=== PATIENT | male | born 1970 | race Caucasian/White ===

== ENCOUNTER → 2017-12-15 09:14 | Outpatient (CLI) | payer BC, SELFPAY ==
[2017-12-15 12:18] LABS: Absolute Lymphocyte Count 2.67 X10^3/ul (0.83-4.51); Absolute Neutrophil Count 4.5 X10^3/uL (2.0-7.7); Basophil# 0.04 X10^3/uL; Basophil% 0.5 % (0-1); Eosinophil# 0.21 X10^3/uL; Eosinophils% 2.6 % (0-5); Hematocrit 49.6 % (40-54); Hemoglobin 16.8 g/dl (13.0-16.5); Lymphocyte # 2.67 X10^3/ul (4.0); Lymphocyte % 32.9 % (19-41); Mean Corp Hgb Conc 33.9 g/gl (32-36); Mean Corpuscular Hgb 31.1 pg (27.0-32.0); Mean Corpuscular Volume 91.9 fL (80-94); Mean Platelet Vol. 10.6 fl (6.2-12.0); Monocyte# 0.71 X10^3/uL; Monocyte% 8.7 % (0-10); Neutrophil # 4.47 X10^3/uL (2.7-7.7); Neutrophil % 55.1 % (47-70); Platelet Count 211 K/mm3 (150-450); RBC Distribution Width CV 13.2 % (11.6-14.6); White Blood Count 8.1 K/mm3 (4.4-11.0)
[2017-12-15 12:27] LABS: POSITIVE COUNT NO; POSITIVE DIFFERENTIAL NO; POSITIVE MORPHOLOGY NO
[2017-12-15 12:55] LABS: ALB/GLOB Ratio 1.1 RATIO (0.9-2.4); AST(SGOT) 24 U/L (15-37); Alanine Aminotransfer ALT/SGPT 31 U/L (16-61); Albumin, Serum 3.8 g/dL (3.2-5.0); Alkaline Phosphatase 116 U/L (45-117); Anion Gap 12 (5-15); BUN 11 mg/dL (7-18); BUN/Creat Ratio 11.7 RATIO (10-20); Calcium,Total 8.9 mg/dL (8.5-10.1); Chloride 101 mmol/L (98-107); Cholesterol 201 mg/dL (200); Creatinine, Serum 0.94 mg/dL (0.70-1.30); EST Glomerular Filtration Rate 90 mL/min (>60); Est Glom Filt Rate - Afr Amer 109 mL/min (>60); Globulin 3.6 g/dL (2.2-4.2); Glucose 99 mg/dL (74-106); High Density Lipoprotein 32 mg/dL; Potassium 3.7 mmol/L (3.5-5.1); Protein, Total 7.4 g/dL (6.4-8.2); Sodium Level 136 mmol/L (136-145); Thyroid Stim Hormone (TSH) 1.73 uIU/mL (0.358-3.74); Triglycerides 252 mg/dL; Very Low Density Lipoprotein 50 mg/dL (5-40)
[2017-12-16 10:31] LABS: Vitamin B12 447 pg/mL (211-911); Vitamin D,25 Hydroxy 11.6 ng/mL (29.95-100.01)
[2017-12-18 14:06] LABS: Testosterone, Free 9.26 ng/dL (5.00-21.00)
[2017-12-19 10:01] LABS: Testosterone, % Free 3.81 % (1.50-4.20); Testosterone, Total 243 ng/dL (264-916)
== END ==
PROVIDERS: Visit Provider Family Medicine
DX: I10 Essential (primary) hypertension (principal); R53.83 Other fatigue; E78.5 Hyperlipidemia, unspecified; N52.9 Male erectile dysfunction, unspecified
CPT/HCPCS: 36415; 80053; 80061; 82306; 82607; 84402; 84403; 84443; 85025

== ENCOUNTER → 2018-01-02 13:49 | Outpatient (CLI) | payer BC, SELFPAY ==
--- NOTE | 2018-01-02 13:49 | DT_ITS ---
This patient was seen during an EMR downtime December 26, 2017 - January 02, 2018. This patient may have a combination of paper and electronic documentation or all paper documentation. All documentation is viewable within the e-chart portion of [facility] for each patient visit.
--- NOTE | 2018-01-07 09:20 | LEAS ---
Arterial Study - Arterial Study Arterial Study: This is a 47-year-old male with a history of hypertension and smoking. He presents with symptoms of exertional leg pain, suspicious for intermittent claudication related to arterial occlusive disease. The patient's symptoms are worse in the right lower extremity. Suspecting the presence of arterial occlusive disease, the patient was brought to the noninvasive vascular laboratory at this time for the purpose of bilateral noninvasive lower extremity arterial assessment. Doppler signal assessment was used to evaluate the pulses at ankle level bilaterally. On the right, the posterior tibial and dorsalis pedis pulses were biphasic. The left posterior tibial pulse was triphasic. The left dorsalis pedis pulse was biphasic. Segmental limb pressures were obtained bilaterally. The right low thigh pressure was measured at 128 mmHg. The right calf pressure was measured at 102 mmHg. The right ankle pressure, as determined by posterior tibial pulse, was measured at 106 mmHg. The right ankle pressure, as determined by dorsalis pedis pulse, was measured at 99 mmHg. The right digital pressure was measured at 82 mmHg. The left low thigh pressure was measured at 160 mmHg. The left calf pressure was measured at 129 mmHg. The left ankle pressure, as determined by posterior tibial pulse, was measured at 135 mmHg. The left ankle pressure, as determined by dorsalis pedis pulse, was measured at 124 mmHg. The left digital pressure was measured at 98 mmHg. Pulse-volume recordings were obtained bilaterally and segmentally. Waveform amplitudes appeared to be diminished at digital levels bilaterally. Resting ankle-brachial indices were calculated bilaterally. The resting right ankle-brachial index was calculated to be 0.75. The resting left ankle-brachial index was calculated to be 0.96. Digital-brachial indices were calculated bilaterally. The right digital-brachial index was calculated to be 0.58. The left digital-brachial index was calculated to be 0.70. Impression: Based upon the findings of this resting noninvasive lower extremity arterial study, there is evidence of moderate arterial occlusive disease in the right lower extremity. Arterial flow in the left lower extremity appears to be relatively normal. Biphasic waveforms are noted at ankle level on the right. Triphasic and biphasic waveforms were noted at ankle level on the left. The resting right ankle-brachial index is moderately diminished. The right digital-brachial index is mildly to moderately diminished, consistent with mild to moderate arterial occlusive disease in the right lower extremity. The resting left ankle-brachial index is normal. The left digital-brachial index is low-normal.
--- NOTE | 2018-01-07 09:31 | LEAS_ITS ---
Arterial Study - Arterial Study Arterial Study: This is a 47-year-old male with a history of hypertension and smoking. He presents with symptoms of exertional leg pain, suspicious for intermittent claudication related to arterial occlusive disease. The patient's symptoms are worse in the right lower extremity. Suspecting the presence of arterial occlusive disease, the patient was brought to the noninvasive vascular laboratory at this time for the purpose of bilateral noninvasive lower extremity arterial assessment. Doppler signal assessment was used to evaluate the pulses at ankle level bilaterally. On the right, the posterior tibial and dorsalis pedis pulses were biphasic. The left posterior tibial pulse was triphasic. The left dorsalis pedis pulse was biphasic. Segmental limb pressures were obtained bilaterally. The right low thigh pressure was measured at 128 mmHg. The right calf pressure was measured at 102 mmHg. The right ankle pressure, as determined by posterior tibial pulse, was measured at 106 mmHg. The right ankle pressure, as determined by dorsalis pedis pulse, was measured at 99 mmHg. The right digital pressure was measured at 82 mmHg. The left low thigh pressure was measured at 160 mmHg. The left calf pressure was measured at 129 mmHg. The left ankle pressure, as determined by posterior tibial pulse, was measured at 135 mmHg. The left ankle pressure, as determined by dorsalis pedis pulse, was measured at 124 mmHg. The left digital pressure was measured at 98 mmHg. Pulse-volume recordings were obtained bilaterally and segmentally. Waveform amplitudes appeared to be diminished at digital levels bilaterally. Resting ankle-brachial indices were calculated bilaterally. The resting right ankle-brachial index was calculated to be 0.75. The resting left ankle- brachial index was calculated to be 0.96. Digital-brachial indices were calculated bilaterally. The right digital- brachial index was calculated to be 0.58. The left digital-brachial index was calculated to be 0.70. Impression: Based upon the findings of this resting noninvasive lower extremity arterial study, there is evidence of moderate arterial occlusive disease in the right lower extremity. Arterial flow in the left lower extremity appears to be relatively normal. Biphasic waveforms are noted at ankle level on the right. Triphasic and biphasic waveforms were noted at ankle level on the left. The resting right ankle-brachial index is moderately diminished. The right digital- brachial index is mildly to moderately diminished, consistent with mild to moderate arterial occlusive disease in the right lower extremity. The resting left ankle-brachial index is normal. The left digital-brachial index is low- normal.
== END ==
PROVIDERS: Family Provider Family Medicine; PCP Family Medicine; Visit Provider Family Medicine
DX: I73.9 Peripheral vascular disease, unspecified (principal); R09.89 Other specified symptoms and signs involving the circulatory and respiratory systems; R25.2 Cramp and spasm
CPT/HCPCS: 93923

== ENCOUNTER → 2018-01-26 10:01 | Outpatient (CLI) | payer BC, SELFPAY | PROVIDERS: Family Provider Family Medicine; PCP Family Medicine; Visit Provider Family Medicine | DX: G47.19 Other hypersomnia (principal) | CPT/HCPCS: 95806 ==

== ENCOUNTER → 2018-03-17 12:37 | Outpatient (CLI) | payer BC, SELFPAY | LOC: CVS 12:38 | PROVIDERS: Family Provider Family Medicine; PCP Family Medicine; Visit Provider Family Medicine | DX: R07.9 Chest pain, unspecified (principal) | CPT/HCPCS: 93017; 93350; Q9957; A4216; C8928 ==

== ENCOUNTER → 2019-02-28 07:16 | Outpatient (CLI) | payer BC, SELFPAY ==
[2019-02-28 09:06] LABS: Absolute Lymphocyte Count 2.57 X10^3/uL (0.83-4.51); Absolute Neutrophil Count 4.9 X10^3/uL (2.0-7.7); Basophil# 0.05 X10^3/uL; Basophil% 0.6 % (0-1); Eosinophil# 0.22 X10^3/uL; Eosinophils% 2.6 % (0-5); Hematocrit 46.1 % (40-54); Hemoglobin 15.6 g/dL (13.0-16.5); Lymphocyte # 2.57 X10^3/ul (4.0); Lymphocyte % 30.1 % (19-41); Mean Corp Hgb Conc 33.8 g/dL (32-36); Mean Corpuscular Hgb 30.9 pg (27.0-32.0); Mean Corpuscular Volume 91.3 fL (80-94); Mean Platelet Vol. 11.4 fl (6.2-12.0); Monocyte% 9.4 % (0-10); NRBC Flagged by Analyzer 0 % (0-5); Neutrophil # 4.86 X10^3/uL (2.7-7.7); Neutrophil % 56.9 % (47-70); Platelet Count 166 K/mm3 (150-450); RBC Distribution Width CV 13.6 % (11.6-14.6); RBC Distribution Width SD 45.6 fl (35.1-43.9); Red Blood Count 5.05 M/mm3 (4.6-6.2); White Blood Count 8.5 K/mm3 (4.4-11.0)
[2019-02-28 09:37] LABS: ALB/GLOB Ratio 1.1 RATIO (0.9-2.4); AST(SGOT) 24 U/L (15-37); Alanine Aminotransfer ALT/SGPT 31 U/L (16-61); Albumin, Serum 3.5 g/dL (3.2-5.0); Alkaline Phosphatase 97 U/L (45-117); Anion Gap 8 (5-15); BUN 14 mg/dL (7-18); BUN/Creat Ratio 14.9 RATIO (10-20); Calcium,Total 9.1 mg/dL (8.5-10.1); Chloride 106 mmol/L (98-107); Cholesterol 135 mg/dL (200); Creatinine, Serum 0.94 mg/dL (0.70-1.30); EST Glomerular Filtration Rate 90 mL/min (>60); Est Glom Filt Rate - Afr Amer 109 mL/min (>60); Globulin 3.1 g/dL (2.2-4.2); Glucose 98 mg/dL (74-106); High Density Lipoprotein 48 mg/dL; Magnesium 2.1 mg/dL (1.6-2.6); Potassium 3.8 mmol/L (3.5-5.1); Protein, Total 6.6 g/dL (6.4-8.2); Sodium Level 140 mmol/L (136-145); Triglycerides 72 mg/dL; Very Low Density Lipoprotein 14 mg/dL (5-40)
== END ==
LOC: LAB.FUTURE 09-06 00:39 → BFHLAB 09-13 13:14
PROVIDERS: Family Provider Family Medicine; PCP Family Medicine; Referring Provider Family Medicine; Visit Provider Family Medicine
DX: I10 Essential (primary) hypertension (principal); I73.9 Peripheral vascular disease, unspecified; E78.5 Hyperlipidemia, unspecified; F17.200 Nicotine dependence, unspecified, uncomplicated; N52.9 Male erectile dysfunction, unspecified; Z51.81 Encounter for therapeutic drug level monitoring
CPT/HCPCS: 36415; 80053; 80061; 83735; 85025

== ENCOUNTER → 2020-03-13 08:54 | Outpatient (CLI) | payer BC, SELFPAY ==
[2019-05-14 19:02] VITALS: BMI 27.2
[2020-03-13 12:42] LABS: Absolute Lymphocyte Count 3.21 X10^3/uL (0.83-4.51); Basophil# 0.06 X10^3/uL; Basophil% 0.6 % (0-1); Eosinophil# 0.27 X10^3/uL; Eosinophils% 2.6 % (0-5); Hematocrit 47.5 % (40-54); Lymphocyte # 3.21 X10^3/ul (4.0); Lymphocyte % 30.6 % (19-41); Mean Corp Hgb Conc 33.7 g/dL (32-36); Mean Corpuscular Hgb 31.7 pg (27.0-32.0); Mean Corpuscular Volume 94.1 fL (80-94); Mean Platelet Vol. 10.3 fl (6.2-12.0); Monocyte# 0.91 X10^3/uL; Monocyte% 8.7 % (0-10); NRBC Flagged by Analyzer 0 % (0-5); Neutrophil % 57.1 % (47-70); Platelet Count 255 K/mm3 (150-450); RBC Distribution Width CV 13.3 % (11.6-14.6); RBC Distribution Width SD 45.6 fl (35.1-43.9); Red Blood Count 5.05 M/mm3 (4.6-6.2); White Blood Count 10.5 K/mm3 (4.4-11.0)
[2020-03-13 12:57] LABS: ALB/GLOB Ratio 1.1 RATIO (0.9-2.4); AST(SGOT) 20 U/L (15-37); Alanine Aminotransfer ALT/SGPT 32 U/L (16-61); Albumin, Serum 3.7 g/dL (3.2-5.0); Alkaline Phosphatase 118 U/L (45-117); Anion Gap 6 (5-15); BUN 14 mg/dL (7-18); Chloride 104 mmol/L (98-107); Cholesterol 138 mg/dL (200); EST Glomerular Filtration Rate 84 mL/min (>60); Est Glom Filt Rate - Afr Amer 101 mL/min (>60); Globulin 3.3 g/dL (2.2-4.2); Glucose 106 mg/dL (74-106); High Density Lipoprotein 40 mg/dL; Potassium 3.5 mmol/L (3.5-5.1); Sodium Level 137 mmol/L (136-145); Triglycerides 117 mg/dL; Very Low Density Lipoprotein 23 mg/dL (5-40)
[2020-03-13 12:58] LABS: Vitamin D,25 Hydroxy 35.3 ng/mL
== END ==
PROVIDERS: PCP Family Medicine; Visit Provider Family Medicine
DX: Z00.00 Encounter for general adult medical examination without abnormal findings (principal); Z12.5 Encounter for screening for malignant neoplasm of prostate; E55.9 Vitamin D deficiency, unspecified
CPT/HCPCS: 36415; 80053; 80061; 82306; 84153; 85025; G0103

== ENCOUNTER 2020-04-23 05:24 | Day surgery (SDC) | payer BC, SELFPAY ==
[2019-05-14 19:02] VITALS: BMI 27.2
[2020-04-23] VITALS (9 sets, daily range): BP systolic 110–149; BP diastolic 77–102; PULSE 68–108; RESP 16; TEMP 36.2–36.3; O2SAT 95–100; BMI 25.6
--- NOTE | 2020-04-23 | COLBX_PTH ---
PATIENT: MOHSEN THOMPSON LOC: EN U#:[id number] AGE/SX: 49/M ROOM: RE04/23/[address]: Dr. Stevie South MD : 1970 BED: DIS: 04/23/2020 SPEC #: [id number] RECD: 04/23/20 08:01 STATUS: ELY VIELKA #: [id number] SHREYA: 04/23/20 00:[address]: Stevie South DEPT: SURGICAL PATHOLOGY RECD BY: Balwinder Meyers ENTERED: 04/23/20 08:53 SP TYPE: COLON BX OTHR DR: Dr. Nilo Feldman DO Tissues: A - Transverse colon B - Transverse colon C - Descending colon D - Descending colon E - Descending colon F - Descending colon G - Descending colon Procedures: Surgery Specimen Level IV HEADER OPERATION: Colonoscopy - open access (MOD) PRE-OP DIAGNOSIS: Screening TISSUE SUBMITTED: A - Proximal transverse polyp, B - Mid transverse polyp (cold snare), C - Proximal descending polyp, D - Mid descending polyp #1, E - Mid descending polyp #2, F - Mid descending polyp #3 (cold snare), G - Mid descending polyp #4 biopsy and cold snare MICROSCOPIC DIAGNOSIS A. Proximal transverse colon polyp, biopsy: Tubular adenoma. B. Mid transverse colon polyp, biopsy: Fragments of tubular adenoma. C. Proximal descending colon polyp, biopsy: Tubular adenoma. D. Mid descending colon polyp #1, biopsy: Fragments of tubular adenoma. E. Mid descending colon polyp #2, biopsy: Fragments of tubular adenoma. F. Mid descending colon polyp #3, biopsy: Fragments of tubular adenoma. G. Mid descending colon polyp #4, biopsy: Fragments of hyperplastic polyp. A few fragments of tubular adenoma. CHARLES:jayme 04/24/20 MICROSCOPIC DESCRIPTION Slides are reviewed. GROSS DESCRIPTION A - Received in fixative is one container labeled with the patient's name and designated proximal transverse colon polyp. The specimen consists of one irregular fragment of light calderon soft tissue that measures 0.5 x 0.5 x 0.1 cm. The specimen is totally submitted in one cassette. B - Received in fixative is one container labeled with the patient's name and designated mid transverse colon polyp. The specimen consists of multiple irregular fragments of light calderon soft tissue that in aggregate measure 0.7 x 0.6 x 0.1 cm. The specimen is totally submitted in one cassette. C - Received in fixative is one container labeled with the patient's name and designated proximal descending colon polyp. The specimen consists of one irregular fragment of light calderon soft tissue that measures 0.7 x 0.5 x 0.2 cm. The specimen is totally submitted in one cassette. D - Received in fixative is one container labeled with the patient's name and designated mid descending colon polyp #1. The specimen consists of multiple irregular fragments of light calderon soft tissue that in aggregate measure 1.5 x 1 x 0.1 cm. The specimen is totally submitted in one cassette. E - Received in fixative is one container labeled with the patient's name and designated mid descending colon polyp #2. The specimen consists of multiple irregular fragments of light calderon soft tissue that in aggregate measure 1 x 0.5 x 0.2 cm. The specimen is totally submitted in one cassette. F - Received in fixative is one container labeled with the patient's name and designated mid descending colon polyp #3. The specimen consists of multiple irregular fragments of light calderon soft tissue that in aggregate measure 0.6 x 0.6 x 0.1 cm. The specimen is totally submitted in one cassette. G - Received in fixative is one container labeled with the patient's name and designated mid descending colon polyp #4. The specimen consists of multiple irregular fragments of light calderon soft tissue that in aggregate measure 1.5 x 1 x 0.1 cm. The specimen is totally submitted in one cassette. / AM:rg 04/23/20 TC:1 CPT: 91470 x7
[2020-04-23] MEDS: Lactated Ringers 1,000 ML 100 ML IV ×2 (05:58→07:08)
--- NOTE | 2020-04-23 05:58 | HP.PCM_ITS ---
Problem List (1) Screening for intestinal cancer Status: Acute History of Present Illness Date of Admission: 04/23/20 The patient is a 49 year old M who presents for screening colonoscopy today. He denies family history of colon cancer. He has not had a previous colonoscopy. No bright red blood per rectum or melena. No abdominal pain. No unexpected weight loss. He is not aware of any exposure to COVID-19. No chest pain no shortness of breath no cough no fever no chilling. He has had no history of DVT. Past Medical History Medical History: Medical History (Last Updated 05/14/19 @ 19:12 by Laurita Machado NP, VUL[employer] CREWMEMBER-C) Pneumonia J18.9 Hypertension I10 Allergies No Known Allergies Allergy (Verified 04/23/20 05:38) Home Medications: Ambulatory Orders Medication Instructions Recorded albuterol sulfate 90 mcg/actuation 2 puff INHALATION Q6H PRN 05/14/19 aerosol inhaler metoprolol tartrate 50 mg tablet 50 mg PO BID 05/14/19 Atorvastatin Calcium [Lipitor] 40 mg PO BID 04/22/20 Hydrochlorothiazide [Hctz] 25 mg PO DAILY 04/22/20 Omeprazole 40 mg PO DAILY 04/22/20 Smoking Status: Current every day smoker Tobacco Use: Cigarettes Review of Systems Constitutional: Denies: Fever, Night Sweats HEENT: Denies: Difficulty Swallowing Cardiovascular: Denies: Chest Pain Respiratory: Denies: Cough, Shortness of Breath Gastrointestinal: Denies: Abdominal Pain Endocrine: Denies: Change in Body Habitus VTE Information - Inpt Only VTE Present on Admission: No Patient Problems: Active and Suspected Problems (Last Updated 05/14/19 @ 19:12 by Laurita Machado NP, [employer] CREWMEMBER-C) Screening for intestinal cancer (Acute) - Physical Exam Vitals/I&O's: Vital Signs Temp Pulse Resp BP Pulse Ox 97.4 F L 108 H 16 142/102 H 98 04/23/20 05:41 04/23/20 05:41 04/23/20 05:41 04/23/20 05:41 04/23/20 05:41 Oxygen Delivery Method Room Air Weight: 178 lb 9.191 oz Body Mass Index (BMI) 25.6 General: Alert, Oriented x3, Cooperative, No apparent distress HEENT: Atraumatic Oral: Moist Mucosa Lungs: Clear to auscultation, Normal air movement Cardiovascular: Regular rate, Regular Rhythm Abdomen: Bowel Sounds Present, Soft, Non Tender Extremities: No Calf Tenderness Neurological: - - Normal cognition Psych/Mental Status: Normal Affect Current Medications Lactated Ringer's () 1,000 mls @ 100 mls/hr IV .Q10H [facility] Assessment/Plan All Active Problems (Last Updated 05/14/19 @ 19:12 by Laurita Machado NP, [employer] CREWMEMBER-C) Screening for intestinal cancer (Acute) Bronchitis (Acute) Left maxillary sinusitis (Acute) Left otitis media (Acute) The patient presents via open access today for screening colonoscopy with possible biopsy or polypectomy is indicated. He is aware of the technique, benefit, risk, alternatives. He has had an opportunity to ask and have quest ions answered. He states he tolerated his bowel prep well. We will proceed as noted. Stevie South M.D., F.A.C.S. Procedure Criteria Procedure Type: Elective COVID Risk Discussion: The surgeon/proceduralist and patient have discussed in detail the risk of exposure to and/or potential harm posed by the COVID-19 virus with having a surgery/procedure at this time versus the risk of delaying the surgery/procedure. It is not possible to know either the risk of delaying the surgery or procedure or chance of getting an infection with perfect accuracy, but a joint decision was made between the patient and the surgeon/proceduralist to proceed at this time with the scheduled surgery/procedure as indicated on the consent form.
--- NOTE | 2020-04-23 07:05 | OP.COLON_ITS ---
Patient Name: Bony Woods Procedure Date: 04/23/2020 6:01 AM Date of : 1970 Age: 49 Procedure: Colonoscopy Indications: Screening for colorectal malignant neoplasm Providers: Stevie South MD Referring MD: Nilo Feldman Medicines: Midazolam 4 mg IV, Meperidine 80 mg IV Patient Profile: Last Colonoscopy: none. The patient's first colonoscopy is today. Complications: No immediate complications. Procedure: Pre-Anesthesia Assessment: - Prior to the procedure, a History and Physical was performed, and patient medications and allergies were reviewed. The patient's tolerance of previous anesthesia was also reviewed. The risks and benefits of the procedure and the sedation options and risks were discussed with the patient. All questions were answered, and informed consent was obtained. Prior Anticoagulants: The patient has taken no previous anticoagulant or antiplatelet agents. ASA Grade Assessment: II - A patient with mild systemic disease. After reviewing the risks and benefits, the patient was deemed in satisfactory condition to undergo the procedure. After I obtained informed consent, the scope was passed under direct vision. Throughout the procedure, the patient's blood pressure, pulse, and oxygen saturations were monitored continuously. The Colonoscope was introduced through the anus and advanced to the cecum, identified by appendiceal orifice and ileocecal valve. The colonoscopy was performed without difficulty. The patient tolerated the procedure well. The quality of the bowel preparation was good. The ileocecal valve and the appendiceal orifice were photographed. Moderate Sedation: Moderate (conscious) sedation was personally administered by the endoscopist. The following parameters were monitored: oxygen saturation, heart rate, blood pressure, and response to care. Total physician intraservice time was 20 minutes. Scope In: 6:30:48 AM Scope Withdrawal Time 0 hours 19 minutes 53 seconds Scope Out: 6:56:20 AM Total Procedure Duration Time 0 hours 25 minutes 32 seconds Findings: The perianal and digital rectal examinations were normal. A 7 mm polyp was found in the proximal transverse colon. The polyp was sessile. The polyp was removed with a hot snare. Resection and retrieval were complete. A 6 mm polyp was found in the mid transverse colon. The polyp was sessile. The polyp was removed with a cold snare. Resection and retrieval were complete. A 8 mm polyp was found in the proximal descending colon. The polyp was sessile. The polyp was removed with a hot snare. Resection and retrieval were complete. A 10 mm polyp was found in the mid descending colon. The polyp was sessile. The polyp was removed with a hot snare. Resection and retrieval were complete. A 7 mm polyp was found in the mid descending colon. The polyp was sessile. The polyp was removed with a hot snare. Resection and retrieval were complete. A 7 mm polyp was found in the mid descending colon. The polyp was sessile. The polyp was removed with a cold snare. Resection and retrieval were complete. A 8 mm polyp was found in the mid descending colon. The polyp was sessile. The polyp was removed with a cold biopsy forceps. Resection and retrieval were complete. Impression: - One 7 mm polyp in the proximal transverse colon, removed with a hot snare. Resected and retrieved. - One 6 mm polyp in the mid transverse colon, removed with a cold snare. Resected and retrieved. - One 8 mm polyp in the proximal descending colon, removed with a hot snare. Resected and retrieved. - One 10 mm polyp in the mid descending colon, removed with a hot snare. Resected and retrieved. - One 7 mm polyp in the mid descending colon, removed with a hot snare. Resected and retrieved. - One 7 mm polyp in the mid descending colon, removed with a cold snare. Resected and retrieved. - One 8 mm polyp in the mid descending colon, removed with a cold biopsy forceps. Resected and retrieved. Recommendation: - Await pathology results. - Repeat colonoscopy in 1 year for surveillance. - Telephone my office for pathology results in 1 week. - Continue present medications. Procedure Code(s): --- Professional --- 11385, Colonoscopy, flexible; with removal of tumor(s), polyp(s), or other lesion(s) by snare technique 79022, 59, Colonoscopy, flexible; with biopsy, single or multiple 03897, 59, Moderate sedation services provided by the same physician or other qualified health pet caretaker performing the diagnostic or therapeutic service that the sedation supports, requiring the presence of an independent trained observer to assist in the monitoring of the patient's level of consciousness and physiological status; initial 15 minutes of intraservice time, patient age 5 years or older Diagnosis Code(s): --- Professional --- Z12.11, Encounter for screening for malignant neoplasm of colon D12.3, Benign neoplasm of transverse colon (hepatic flexure or splenic flexure) D12.4, Benign neoplasm of descending colon CPT copyright 2017 [employer]. All rights reserved. The codes documented in this report are preliminary and upon line out worker review may be revised to meet current compliance requirements. Stevie South MD 04/23/2020 7:04:09 AM This report has been signed electronically. Number of Addenda: 0 Note Initiated On: 04/23/2020 6:01 AM
--- NOTE | 2020-04-23 07:05 | OP.CCLET_ITS ---
04/23/2020 Nilo Gaston [address] [facility] [place] [address] Re : Colonoscopy procedure for Bony Woods Dear Dr. Feldman This procedure was performed on Thursday, April 23, 2020. My impressions and recommendations are as follows: Impressions : - One 7 mm polyp in the proximal transverse colon, removed with a hot snare. Resected and retrieved. - One 6 mm polyp in the mid transverse colon, removed with a cold snare. Resected and retrieved. - One 8 mm polyp in the proximal descending colon, removed with a hot snare. Resected and retrieved. - One 10 mm polyp in the mid descending colon, removed with a hot snare. Resected and retrieved. - One 7 mm polyp in the mid descending colon, removed with a hot snare. Resected and retrieved. - One 7 mm polyp in the mid descending colon, removed with a cold snare. Resected and retrieved. - One 8 mm polyp in the mid descending colon, removed with a cold biopsy forceps. Resected and retrieved. Recommendations : - Await pathology results. - Repeat colonoscopy in 1 year for surveillance. - Telephone my office for pathology results in 1 week. - Continue present medications. My findings are described in the full procedure note, which is enclosed. If I can be of further assistance, please feel free to contact me at Doctor phone number(s): Work: . Sincerely, Stevie South MD 04/23/2020 7:04:09 AM This report has been signed electronically.
== END 2020-04-23 07:55 | disposition home or self-care (01) ==
LOC: EN 05:24 → AC 05:24
PROVIDERS: PCP Family Medicine; Referring Provider Family Medicine; Visit Provider Surgery
PROC: 0DJD8ZZ Inspection of Lower Intestinal Tract, Via Natural or Artificial Opening Endoscopic (ICD-10-PCS; CPT 45378; principal; 2020-04-23 06:25)
DX: Z12.11 Encounter for screening for malignant neoplasm of colon (principal); D12.4 Benign neoplasm of descending colon; D12.3 Benign neoplasm of transverse colon; I10 Essential (primary) hypertension; F17.210 Nicotine dependence, cigarettes, uncomplicated; Z79.899 Other long term (current) drug therapy; Z11.59 Encounter for screening for other viral diseases
CPT/HCPCS: 45380; 45385; 87635; 88305; 99152; 99153; C9803; J7120; U0003

== ENCOUNTER 2021-04-21 05:51 | Day surgery (SDC) | payer OTHER, SELFPAY ==
--- NOTE | 2021-04-21 06:13 | HP.PCM_ITS ---
HPI - General HPI Narrative MOHSEN THOMPSON, is a 50 M who presents for surveillance colonoscopy. His previous one was April 23, 2020. At that point he had 7 polyps removed. I requested that he return at 1 year due to the multitude and size of his polyps. He has had no complaints over the past year. He has not had COVID-19. He has been vaccinated. He states that he does have some allergies. I noted on exam that he has slight wheezes. PFSH Medical History Alcohol use Cardiology follow-up encounter Gastric reflux High cholesterol History of stress test Hypertension Pneumonia Smoker Home Medications albuterol sulfate 90 mcg/actuation aerosol inhaler 2 puff INHALATION Q6H PRN 05/14/19 [History Last Taken Unknown] metoprolol tartrate 50 mg tablet 50 mg PO BID 05/14/19 [History Last Taken 04/23/20] atorvastatin 40 mg PO BID 04/22/20 [History Last Taken 04/23/20] hydrochlorothiazide 25 mg PO DAILY 04/22/20 [History Last Taken Unknown] omeprazole 40 mg PO DAILY 04/22/20 [History Last Taken 04/23/20] Allergy/AdvReac Type Severity Reaction Status Date / Time No Known Allergies Allergy Verified 04/16/21 14:19 Family History (Updated 05/14/19 @ 19:12 by Laurita Machado NP, CORRECTIONS IDENTIFICATION TECHNICIAN-C) Other Cancer Cancer of abdominal organ Heart disease Hypertension Surgical History (Updated 04/16/21 @ 14:25 by Татьяна Monique) History of colonoscopy Social History (Updated 05/14/19 @ 19:15 by Lauirta Machado NP, CORRECTIONS IDENTIFICATION TECHNICIAN-C) Smoking Status: Current every day smoker tobacco type: cigarettes ROS Constitutional Constitutional: Reports systems reviewed and no addt'l complaints, except as documented Cardiovascular Cardiovascular: Denies chest pain Respiratory/Chest Respiratory/Chest: Denies shortness of breath at rest Gastrointestinal Gastrointestinal: Denies abdominal pain, change in bowel habits, hematochezia or melena Physical Exam Const alert, oriented x3 and no apparent distress General Appearance: cooperative and comfortable Eyes General Eye: normal appearance of both eyes Neck General: normal visual inspection Chest inspection of chest normal Chest Narrative: Inspiratory wheeze noted bilaterally. Resp Effort and Inspection: able to speak in complete sentences and symmetric chest movement Auscultation: clear to auscultation bilaterally Cardio regular rate and regular rhythm GI soft to palpation, non-tender and non-distended Extremity no calf tenderness Neuro oriented x3 Psych thought process normal Assessment & Plan Assessment/Plan (1) Personal history of colonic polyps: PLAN: 50-year-old gentleman with a personal history of multiple colon p olyps. He presents via open access today. Mild inspiratory wheezing noted bilaterally. He will be given a DuoNeb respiratory treatment. I propose for him a surveillance colonoscopy. He is aware of the technique, benefit, risk, alternatives. He has had an opportunity to ask and have questions answered. We will proceed as noted. Stevie South M.D., F.A.C.S.
[2021-04-21 06:17] VITALS: BP 139/83; PULSE 109; RESP 18; TEMP 36.6; O2SAT 97; BMI 26.4
[2021-04-21 06:21] VITALS: PULSE 88; RESP 16
[2021-04-21] MEDS: Ipratropium/Albuterol Sulfate 3 ML AMPUL.NEB INHALATION (06:21)
[2021-04-21] MEDS: Lactated Ringers 1,000 ML 100 ML IV (06:25)
--- NOTE | 2021-04-21 07:00 | COLBX_PTH ---
PATIENT: MOHSEN THOMPSON LOC: EN U#:[id number] AGE/SX: 50/M ROOM: RE04/21/[address]: Dr. Stevie South MD : 1970 BED: DIS: 04/21/2021 SPEC #: [id number] RECD: 04/21/21 09:15 STATUS: ELY VORA #: [id number] SHREYA: 04/21/21 07:[address]: Stevie South DEPT: SURGICAL PATHOLOGY RECD BY: Brittany Milian ENTERED: 04/21/21 12:03 SP TYPE: COLON BX OTHR DR: Dr. Nilo Feldman DO Tissues: Sigmoid colon biopsy Procedures: Surgery Specimen Level IV HEADER OPERATION: Colonoscopy ? open access (MAC) PRE-OP DIAGNOSIS: History of colonic polyps TISSUE SUBMITTED: Biopsy of distal sigmoid polyp MICROSCOPIC DIAGNOSIS Distal sigmoid colon polyp, biopsy: Fragments of hyperplastic polyp. AM:jayme 04/22/2021 MICROSCOPIC DESCRIPTION Slides are reviewed. GROSS DESCRIPTION Received in fixative is one container labeled with the patient's name and designated distal sigmoid polyp. The specimen consists of multiple irregular fragments of light calderon soft tissue that in aggregate measure 0.6 x 0.3 x 0.1 cm. The specimen is totally submitted in one cassette. / AM:jayme 04/21/21 TC:5 CPT: 29679
[2021-04-21 07:25] VITALS: BP 104/66; BP 139/83; PULSE 87; RESP 16; TEMP 35.7; O2SAT 93
--- NOTE | 2021-04-21 07:27 | OP.COLON_ITS ---
Patient Name: Bony Woods Procedure Date: 04/21/2021 6:59 AM Date of : 1970 Age: 50 Procedure: Colonoscopy Indications: High risk colon cancer surveillance: Personal history of colonic polyps Providers: Stevie South MD Medicines: See the Anesthesia note for documentation of the administered medications Patient Profile: Last Colonoscopy: 1 year ago. Complications: No immediate complications. Procedure: Pre-Anesthesia Assessment: - Prior to the procedure, a History and Physical was performed, and patient medications and allergies were reviewed. The patient's tolerance of previous anesthesia was also reviewed. The risks and benefits of the procedure and the sedation options and risks were discussed with the patient. All questions were answered, and informed consent was obtained. Prior Anticoagulants: The patient has taken no previous anticoagulant or antiplatelet agents. ASA Grade Assessment: II - A patient with mild systemic disease. After reviewing the risks and benefits, the patient was deemed in satisfactory condition to undergo the procedure. After I obtained informed consent, the scope was passed under direct vision. Throughout the procedure, the patient's blood pressure, pulse, and oxygen saturations were monitored continuously. The colonoscope was introduced through the anus and advanced to the cecum, identified by appendiceal orifice and ileocecal valve. The colonoscopy was performed without difficulty. The patient tolerated the procedure well. The quality of the bowel preparation was good. The ileocecal valve and the appendiceal orifice were photographed. Scope In: 7:05:07 AM Scope Withdrawal Time 0 hours 12 minutes 41 seconds Scope Out: 7:21:18 AM Total Procedure Duration Time 0 hours 16 minutes 11 seconds Findings: The perianal and digital rectal examinations were normal. A 6 mm polyp was found in the distal sigmoid colon. The polyp was sessile. The polyp was removed with a cold biopsy forceps. Resection and retrieval were complete. The exam was otherwise without abnormality. Impression: - One 6 mm polyp in the distal sigmoid colon, removed with a cold biopsy forceps. Resected and retrieved. - The examination was otherwise normal. Recommendation: - Discharge patient to home. - Resume previous diet. - Continue present medications. - Repeat colonoscopy in 5 years for surveillance. - Telephone my office for pathology results in 1 week. Procedure Code(s): --- Professional --- 13656, Colonoscopy, flexible; with biopsy, single or multiple Diagnosis Code(s): --- Professional --- Z86.010, Personal history of colonic polyps D12.5, Benign neoplasm of sigmoid colon CPT copyright 2017 [employer]. All rights reserved. The codes documented in this report are preliminary and upon dewaxer review may be revised to meet current compliance requirements. Stevie South MD 04/21/2021 7:26:55 AM This report has been signed electronically. Number of Addenda: 0 Note Initiated On: 04/21/2021 6:59 AM
--- NOTE | 2021-04-21 07:28 | OP.CCLET_ITS ---
04/21/2021 Nilo Feldman [address] [place] [address] Re : Colonoscopy procedure for Bony Woods Dear Dr. Feldman This procedure was performed on Wednesday, April 21, 2021. My impressions and recommendations are as follows: Impressions : - One 6 mm polyp in the distal sigmoid colon, removed with a cold biopsy forceps. Resected and retrieved. - The examination was otherwise normal. Recommendations : - Discharge patient to home. - Resume previous diet. - Continue present medications. - Repeat colonoscopy in 5 years for surveillance. - Telephone my office for pathology results in 1 week. My findings are described in the full procedure note, which is enclosed. If I can be of further assistance, please feel free to contact me at Doctor phone number(s): Work: . Sincerely, Stevie South MD 04/21/2021 7:26:55 AM This report has been signed electronically.
[2021-04-21 07:30] VITALS: BP 139/83; PULSE 87; RESP 16; O2SAT 92
[2021-04-21 07:40] VITALS: BP 119/81; BP 139/83; PULSE 83; RESP 16; TEMP 35.8; O2SAT 93
[2021-04-21 08:08] VITALS: BP 139/83
== END 2021-04-21 08:09 | disposition home or self-care (01) ==
LOC: EN 05:53 → AC 05:54
PROVIDERS: PCP Family Medicine; Referring Provider Family Medicine; Visit Provider Surgery
PROC: 0DJD8ZZ Inspection of Lower Intestinal Tract, Via Natural or Artificial Opening Endoscopic (ICD-10-PCS; CPT 45378; principal; 2021-04-21 06:55)
DX: Z12.11 Encounter for screening for malignant neoplasm of colon (principal); D12.5 Benign neoplasm of sigmoid colon; I10 Essential (primary) hypertension; E78.00 Pure hypercholesterolemia, unspecified; K21.9 Gastro-esophageal reflux disease without esophagitis; F17.210 Nicotine dependence, cigarettes, uncomplicated; Z86.010 Personal history of colon polyps; Z79.899 Other long term (current) drug therapy
CPT/HCPCS: 45380; 88305; 94640; J7120; J2405

== ENCOUNTER → 2022-09-16 | Outpatient (CLI) | payer OTHER, SELFPAY ==
[2022-09-16 12:36] LABS: ALB/GLOB Ratio 0.8 RATIO (0.9-2.4); AST(SGOT) 22 U/L (15-37); Alanine Aminotransfer ALT/SGPT 31 U/L (16-61); Albumin, Serum 3.7 g/dL (3.2-5.0); Alkaline Phosphatase 108 U/L (45-117); Anion Gap 6 (5-15); BUN 16 mg/dL (7-18); BUN/Creat Ratio 14.2 RATIO (10-20); Calcium,Total 9.7 mg/dL (8.5-10.1); Chloride 100 mmol/L (98-107); Cholesterol 147 mg/dL (200); Creatinine, Serum 1.13 mg/dL (0.70-1.30); EST Glomerular Filtration Rate 72 mL/min (>60); Est Glom Filt Rate - Afr Amer 87 mL/min (>60); Globulin 4.5 g/dL (2.2-4.2); Glucose 112 mg/dL (74-106); High Density Lipoprotein 42 mg/dL; PSA,Total - Annual Screen 1.09 ng/mL (0.00-4.00); Potassium 4.3 mmol/L (3.5-5.1); Protein, Total 8.2 g/dL (6.4-8.2); Sodium Level 135 mmol/L (136-145); Triglycerides 165 mg/dL; Very Low Density Lipoprotein 33 mg/dL (5-40)
[2022-09-16 12:51] LABS: Absolute Lymphocyte Count 2.83 X10^3/uL (0.83-4.51); Absolute Neutrophil Count 5.2 X10^3/uL (2.0-7.7); Basophil# 0.05 X10^3/uL; Basophil% 0.5 % (0-1); Eosinophil# 0.27 X10^3/uL; Eosinophils% 2.9 % (0-5); Hematocrit 49.8 % (40-54); Hemoglobin 16.6 g/dL (13.0-16.5); Lymphocyte # 2.83 X10^3/ul (0.83-4.51); Lymphocyte % 30.6 % (19-41); Mean Corp Hgb Conc 33.3 g/dL (32-36); Mean Corpuscular Hgb 31.1 pg (27.0-32.0); Mean Corpuscular Volume 93.3 fL (80-94); Mean Platelet Vol. 10.7 fl (6.2-12.0); Monocyte# 0.91 X10^3/uL; Monocyte% 9.8 % (0-10); NRBC Flagged by Analyzer 0 % (0-5); Neutrophil # 5.17 X10^3/uL (2.7-7.7); Neutrophil % 55.9 % (47-70); Platelet Count 258 K/mm3 (150-450); RBC Distribution Width CV 13.3 % (11.6-14.6); RBC Distribution Width SD 45.5 fl (35.1-43.9); Red Blood Count 5.34 M/mm3 (4.6-6.2); White Blood Count 9.3 K/mm3 (4.4-11.0)
[2022-09-17 09:17] LABS: Hemoglobin A1c 6.6 % (3.8-5.6)
== END | disposition home or self-care (01) ==
LOC: BFHLAB 09:04
PROVIDERS: PCP Family Medicine; Visit Provider Family Medicine
DX: Z00.00 Encounter for general adult medical examination without abnormal findings (principal); Z12.5 Encounter for screening for malignant neoplasm of prostate; R73.01 Impaired fasting glucose
CPT/HCPCS: 36415; 80053; 80061; 83036; 84153; 85025; G0103

== ENCOUNTER → 2022-10-07 | Outpatient (CLI) | payer OTHER, SELFPAY ==
--- NOTE | 2022-10-07 07:18 | CT_ITS ---
STUDY: LOW DOSE CT LUNG CANCER SCREENING REASON FOR EXAM: Male, 52 years old. One pack per day smoker x30 years, hypertension RADIATION DOSAGE (If Supplied By Facility): CTDIvol = ( 2.39 ) mGy, DLP = ( 86.38 ) mGycm TECHNIQUE: No contrast was administered. Low dose technique was utilized (average mAS-38 and kVp 120). 1.25 mm axial source images with a slice interval of 1.25-mm were reconstructed in lung windows. 2.5 mm axial source images with a slice interval of 2.5-mm were reconstructed in lung windows. 5.0 mm axial source images with a slice interval of 5.0-mm were reconstructed in soft tissue windows. COMPARISON: None. NODULES: Lung windows show the lungs to be normally expanded. No superimposed infiltrate or effusion. No suspicious noncalcified mass or nodule. There is a well-defined pneumatocele in the posterior right lower lobe measuring 1.5 cm. Limited soft tissue windows shows a normal-appearing thyroid gland. No suspicious axillary, mediastinal, or perihilar lymph nodes. There are calcified coronary vessels. Bony structures show degenerative change. Limited cuts through the upper abdomen do not show a suspicious abnormality CT/Low Dose CT Lung Screening IMPRESSION: Lung-RADS category 2 - Continue annual screening with LDCT in 12 months. IMPORTANT NOTES FOR USE: ACR Lung-RADS Version 1.1 Assessment Categories Release Date: 2018 Category: Coded 0-4 bases on nodule(s) with highest degree of suspicion. Negative screen is defined as categories 1 and 2; a positive screen is defined as categories 3 and 4. Category 3 and 4A nodules that are unchanged on interval CT should be coded as category 2, and individuals returned to screening in 12 months. Category 4X: Category 3 or 4 nodules with additional imaging findings that increase the suspicion of lung cancer, such as spiculation, GGN that doubles in size in 1 year, enlarged lymph notes, etc. Category Modifiers: S (significant finding unrelated to lung cancer) Electronically Signed: Marty Parr MD at 8:05 EDT ,
== END | disposition home or self-care (01) ==
PROVIDERS: PCP Family Medicine; Visit Provider Family Medicine
DX: Z12.2 Encounter for screening for malignant neoplasm of respiratory organs (principal); F17.210 Nicotine dependence, cigarettes, uncomplicated
CPT/HCPCS: 71271

== ENCOUNTER → 2024-04-04 | Outpatient (CLI) | payer OTHER, SELFPAY ==
[2024-04-04 12:30] LABS: Absolute Lymphocyte Count 2.92 X10^3/uL (0.83-4.51); Absolute Neutrophil Count 5.6 X10^3/uL (2.0-7.7); Basophil# 0.05 X10^3/uL; Basophil% 0.5 % (0-1); Eosinophil# 0.29 X10^3/uL; Hematocrit 43.8 % (40-54); Hemoglobin 14.8 g/dL (13.0-16.5); Lymphocyte # 2.92 X10^3/ul (0.83-4.51); Lymphocyte % 29.8 % (19-41); Mean Corp Hgb Conc 33.8 g/dL (32-36); Mean Corpuscular Volume 91.6 fL (80-94); Mean Platelet Vol. 10.7 fl (6.2-12.0); Monocyte% 9.2 % (0-10); NRBC Flagged by Analyzer 0 % (0-5); Neutrophil # 5.59 X10^3/uL (2.7-7.7); Neutrophil % 57.1 % (47-70); Platelet Count 233 K/mm3 (150-450); RBC Distribution Width CV 13.5 % (11.6-14.6); Red Blood Count 4.78 M/mm3 (4.6-6.2); White Blood Count 9.8 K/mm3 (4.4-11.0)
[2024-04-04 13:44] LABS: ALB/GLOB Ratio 1.1 RATIO (0.9-2.4); AST(SGOT) 19 U/L (15-37); Alanine Aminotransfer ALT/SGPT 25 U/L (16-61); Albumin, Serum 3.5 g/dL (3.2-5.0); Alkaline Phosphatase 89 U/L (45-117); Anion Gap 5 (5-15); BUN 12 mg/dL (7-18); BUN/Creat Ratio 14.4 RATIO (10-20); Calcium,Total 9.5 mg/dL (8.5-10.1); Chloride 103 mmol/L (98-107); Cholesterol 126 mg/dL (200); Creatinine, Serum 0.83 mg/dL (0.70-1.30); EST Glomerular Filtration Rate 102 mL/min (>60); Est Glom Filt Rate - Afr Amer 123 mL/min (>60); Globulin 3.3 g/dL (2.2-4.2); Glucose 134 mg/dL (74-106); High Density Lipoprotein 48 mg/dL; PSA,Total - Annual Screen 0.77 ng/mL (0.00-4.00); Potassium 3.2 mmol/L (3.5-5.1); Protein, Total 6.8 g/dL (6.4-8.2); Sodium Level 134 mmol/L (136-145); Triglycerides 66 mg/dL; Very Low Density Lipoprotein 13 mg/dL (5-40)
== END | disposition home or self-care (01) ==
PROVIDERS: PCP Family Medicine; Referring Provider Family Medicine; Visit Provider Family Medicine
DX: Z00.00 Encounter for general adult medical examination without abnormal findings (principal); Z12.5 Encounter for screening for malignant neoplasm of prostate
CPT/HCPCS: 36415; 80053; 80061; 84153; 85025; G0103

== ENCOUNTER → 2025-04-09 | Outpatient (CLI) | payer OTHER, SELFPAY ==
[2025-04-09 12:45] LABS: Hematocrit 44.2 % (40-54); Hemoglobin 15.1 g/dL (13.0-16.5); Immature Granulocytes Count 0.040 X10^3/uL (0.0-0.0); Mean Corp Hgb Conc 34.2 g/dL (32-36); Mean Corpuscular Volume 90.9 fL (80-94); Mean Platelet Vol. 10.6 fl (6.2-12.0); NRBC Flagged by Analyzer 0 % (0-5); Platelet Count 236 K/mm3 (150-450); RBC Distribution Width CV 13.9 % (11.6-14.6); RBC Distribution Width SD 46.4 fl (35.1-43.9); Red Blood Count 4.86 M/mm3 (4.6-6.2); White Blood Count 7.9 K/mm3 (4.4-11.0)
[2025-04-09 12:50] LABS: AST(SGOT) 31 U/L (<=37); Alanine Aminotransfer ALT/SGPT 25 U/L (<=46); Albumin, Serum 4.1 g/dL (3.5-5.0); Alkaline Phosphatase 92 U/L (40-129); Anion Gap 11 (5-15); BUN 11 mg/dL (4-19); BUN/Creat Ratio 11.4 RATIO (10-20); Calcium,Total 9.2 mg/dL (7.6-11.0); Carbon Dioxide 24.2 mmol/L (21.0-32.0); Chloride 100 mmol/L (98-108); Cholesterol 144 mg/dL (<=200); Globulin 2.5 g/dL (2.2-4.2); Glucose 125 mg/dL (70-99); Low Density Lipoprotein Calc. 84 mg/dL; PSA,Total - Annual Screen 0.74 ng/mL (0.02-4.00); Potassium 3.9 mmol/L (3.3-5.1); Triglycerides 88 mg/dL; Very Low Density Lipoprotein 18 mg/dL (5-40); cholesterol:hdl ratio screen 3.41
== END | disposition home or self-care (01) ==
LOC: BFHLAB 08:41
PROVIDERS: PCP Family Medicine; Visit Provider Family Medicine
DX: Z00.00 Encounter for general adult medical examination without abnormal findings (principal); Z12.5 Encounter for screening for malignant neoplasm of prostate; R73.01 Impaired fasting glucose
CPT/HCPCS: 36415; 80053; 80061; 83036; 84153; 85025; G0103